=== PATIENT | female | born 1945 | race Caucasian/White ===

== ENCOUNTER 2017-04-13 14:02 | Inpatient (IN) | payer OTHER, MEDICAID ==
[2017-04-13 18:02] LABS: WHITE BLOOD COUNT 16.2 10^3/ul (4.8-10.8)
[2017-04-13 18:02] LABS: ADD MAN DIFF? NO; BASOPHILS % 0.2 % (0.0-2.0); EOSINOPHILS % 0.1 % (0.0-7.0); HEMATOCRIT 36.3 % (37.0-47.0); HEMOGLOBIN 11.8 g/dl (12.0-16.0); LYMPHOCYTES # 1.1 10^3/ul (0.8-2.9); LYMPHOCYTES % 6.8 % (15.0-51.0); MEAN CORPUSCULAR HGB CONC 32.5 g/dl (32.0-37.0); MEAN CORPUSCULAR VOLUME 89.2 fl (82.0-101.0); MEAN PLATELET VOLUME 10.6 fl (7.4-10.4); MONOCYTE # 0.7 10^3/ul (0.3-0.9); MONOCYTES % 4.2 % (0.0-11.0); NEUTROPHIL # 14.2 10^3/ul (1.6-7.5); NEUTROPHILS % 87.4 % (39.0-77.0); PLATELET COUNT 167 10^3/UL (140-415); RED BLOOD COUNT 4.07 10^6/ul (4.20-5.40); RED CELL DISTRIBUTION WIDTH 14.3 % (11.5-14.5)
[2017-04-13 18:27] LABS: ALANINE AMINOTRANSFERASE 24 IU/L (13-69); ALBUMIN/GLOBULIN RATIO 1.14; ALKALINE PHOSPHATASE 95 IU/L (42-121); ANION GAP 17 (8-16); ASPARTATE AMINO TRANSFERASE 18 IU/L (15-46); BILIRUBIN,INDIRECT 0.7 mg/dl (0-1.1); BILIRUBIN,TOTAL 0.7 mg/dl (0.2-1.3); BLOOD UREA NITROGEN 20 mg/dl (7-20); CALCIUM 8.3 mg/dl (8.4-10.2); CARBON DIOXIDE 23 mmol/L (21-31); CHLORIDE 101 mmol/L (97-110); CREATININE 0.73 mg/dl (0.44-1.00); GLUCOSE 119 mg/dl (70-220); POTASSIUM 3.7 mmol/L (3.5-5.1); SODIUM 137 mmol/L (135-144); TOTAL PROTEIN 7.5 g/dl (6.1-8.1)
[2017-04-13 18:37] LABS: TROPONIN-I < 0.012 ng/ml (0.00-0.12)
[2017-04-13 18:43] LABS: URINE BLOOD (Dip) POC 2+ (NEGATIVE); URINE GLUCOSE (Dip) POC Negative (NEGATIVE); URINE KETONES (Dip) POC 1+ (NEGATIVE); URINE LEUKOCYTE EST (Dip) POC Trace (NEGATIVE); URINE NITRITE (Dip) POC Negative (NEGATIVE); URINE TOTAL PROTEIN POC Trace (NEGATIVE)
[2017-04-13 18:43] LABS: URINE PH (Dip) POC 5.5 (5.0-8.5)
[2017-04-13 18:48] LABS: INR 1.14; PROTIME 14.8 Sec (11.9-14.9); PT RATIO 1.2
[2017-04-13 18:49] LABS: PARTIAL THROMBOPLASTIN TIME 30.3 Sec (25.0-35.0)
[2017-04-13 18:50] LABS: LACTIC ACID 1.2 mmol/L (0.5-2.0)
[2017-04-13] MEDS ORDERED: ONDANSETRON 4 MG INJ IV ×2 (19:30→20:30)
[2017-04-13] MEDS ORDERED: morphine 2 MG INJ IV ×2 (19:30→20:30)
[2017-04-13] MEDS: LEVOFLOXACIN 750MG/D5W (PMX) 150 ML IVPB (19:46)
[2017-04-13] MEDS: ACETAMINOPHEN 325 MG TAB PO (19:48)
[2017-04-13] MEDS ORDERED: NA PHOSPHATE/BIPHOS 133 ML ENEMA PR (20:30)
[2017-04-13] MEDS ORDERED: IBUPROFEN 400 MG TAB PO (20:30)
[2017-04-13] MEDS ORDERED: LORAZEPAM 2 MG INJ IV (20:30)
[2017-04-13] MEDS ORDERED: NACL 0.9% 3 ML SYG IV (20:30)
[2017-04-13] MEDS: ERGOCALCIFEROL 50,000 UNIT CAP PO (20:30)
[2017-04-13] MEDS ORDERED: VANCOMYCIN IV PER PHARMACY XX (20:30)
[2017-04-13] MEDS ORDERED: MAGNESIUM HYDROXIDE 30ML CUP PO (20:30)
[2017-04-13] MEDS ORDERED: NITROGLYCERIN (SL) 0.4 MG TAB SL (20:30)
[2017-04-13] MEDS ORDERED: DOCUSATE SODIUM 100 MG CAP PO (20:30)
[2017-04-13] MEDS ORDERED: LORAZEPAM 0.5 MG TAB PO (20:30)
[2017-04-13] MEDS ORDERED: ALBUTEROL/IPRATROPIUM (NEB) 3 ML AMP HHN (20:30)
[2017-04-13] MEDS: VANCOMYCIN 1 GM (PMX) 250 ML IVPB (21:18)
[2017-04-13] MEDS: HEPARIN 5,000 UNIT/0.5 ML VIAL SC (21:28)
[2017-04-13] MEDS: SOD CHLORIDE 0.45% 1,000 ML IV (21:29)
[2017-04-13 22:20] LABS: FREE T4 (FREE THYROXINE) 1.39 ng/dl (0.78-2.44)
[2017-04-13 22:31] LABS: LACTIC ACID 2.3 mmol/L (0.5-2.0)
[2017-04-13] MEDS: VANCOMYCIN 500MG/NS (PMX) 100 ML IVPB (23:22)
[2017-04-14 00:34] LABS: LACTIC ACID 1.8 mmol/L (0.5-2.0)
[2017-04-14] MEDS: ACETAMINOPHEN 325 MG TAB PO (05:14)
[2017-04-14] MEDS: PIPER-TAZO 3.375 GM IV (PMX) 100 ML IVPB ×4 (05:15→18:38)
[2017-04-14] MEDS: PANTOPRAZOLE (EC) 40 MG TAB PO (06:12)
[2017-04-14 06:45] LABS: ADD MAN DIFF? NO
[2017-04-14 06:51] LABS: BASOPHILS % 0.2 % (0.0-2.0); HEMOGLOBIN 11.1 g/dl (12.0-16.0); LYMPHOCYTES # 1.2 10^3/ul (0.8-2.9); LYMPHOCYTES % 7.4 % (15.0-51.0); MEAN CORPUSCULAR HEMOGLOBIN 28.8 pg (29.0-33.0); MEAN CORPUSCULAR HGB CONC 31.7 g/dl (32.0-37.0); MEAN CORPUSCULAR VOLUME 90.9 fl (82.0-101.0); MEAN PLATELET VOLUME 10.5 fl (7.4-10.4); MONOCYTE # 0.6 10^3/ul (0.3-0.9); MONOCYTES % 3.7 % (0.0-11.0); NEUTROPHILS % 87.3 % (39.0-77.0); PLATELET COUNT 171 10^3/UL (140-415); RED BLOOD COUNT 3.85 10^6/ul (4.20-5.40); RED CELL DISTRIBUTION WIDTH 14.1 % (11.5-14.5)
[2017-04-14 07:26] LABS: ANION GAP 12 (8-16); BLOOD UREA NITROGEN 16 mg/dl (7-20); CALCIUM 8.4 mg/dl (8.4-10.2); CARBON DIOXIDE 25 mmol/L (21-31); CHLORIDE 103 mmol/L (97-110); CREATININE 0.74 mg/dl (0.44-1.00); GLUCOSE 123 mg/dl (70-220); MAGNESIUM 1.8 mg/dl (1.7-2.5); PHOSPHORUS 2.3 mg/dl (2.5-4.9); POTASSIUM 3.3 mmol/L (3.5-5.1); SODIUM 137 mmol/L (135-144)
[2017-04-14 07:27] LABS: CHOL/HDL RATIO 4.4 RATIO; HDL CHOLESTEROL 32 mg/dl (33-92); LDL CHOLESTEROL,CALCULATED 92 mg/dl; TRIGLYCERIDES 94 mg/dl (0-149)
[2017-04-14 07:27] LABS: CHOLESTEROL 143 mg/dl (100-200)
[2017-04-14 07:48] LABS: THYROID STIMULATING HORMONE 0.233 MIU/L (0.465-4.680)
[2017-04-14 09:50] LABS: HEMOGLOBIN A1C 5.5 % (0-5.9)
[2017-04-14] MEDS: ASPIRIN (EC) 81 MG TAB PO (11:26)
[2017-04-14] MEDS: SOD CHLORIDE 0.45% 1,000 ML IV ×2 (11:26→22:42)
[2017-04-14] MEDS: ATENOLOL 50 MG TAB PO (11:28)
[2017-04-14] MEDS: HEPARIN 5,000 UNIT/0.5 ML VIAL SC ×2 (11:30→20:51)
[2017-04-14] MEDS: VANCOMYCIN 1.25 GM in SODIUM CHLORIDE 0.45 % 250 ML IVPB (19:49)
[2017-04-14] MEDS ORDERED: VANCOMYCIN 1 GM 250 ML IVPB (21:00)
[2017-04-15] MEDS: PIPER-TAZO 3.375 GM IV (PMX) 100 ML IVPB ×3 (00:44→11:54)
[2017-04-15 06:09] LABS: ADD MAN DIFF? NO
[2017-04-15 06:12] LABS: BASOPHILS % 0.3 % (0.0-2.0); EOSINOPHILS # 0.1 10^3/ul (0.0-0.5); EOSINOPHILS % 0.7 % (0.0-7.0); HEMATOCRIT 33.8 % (37.0-47.0); HEMOGLOBIN 10.8 g/dl (12.0-16.0); LYMPHOCYTES # 1.7 10^3/ul (0.8-2.9); LYMPHOCYTES % 15.7 % (15.0-51.0); MEAN CORPUSCULAR HEMOGLOBIN 29.1 pg (29.0-33.0); MEAN CORPUSCULAR VOLUME 91.1 fl (82.0-101.0); MEAN PLATELET VOLUME 10.6 fl (7.4-10.4); MONOCYTE # 0.6 10^3/ul (0.3-0.9); MONOCYTES % 5.6 % (0.0-11.0); NEUTROPHIL # 8.2 10^3/ul (1.6-7.5); NEUTROPHILS % 76.9 % (39.0-77.0); PLATELET COUNT 169 10^3/UL (140-415); RED BLOOD COUNT 3.71 10^6/ul (4.20-5.40); RED CELL DISTRIBUTION WIDTH 14.4 % (11.5-14.5)
[2017-04-15 06:12] LABS: WHITE BLOOD COUNT 10.7 10^3/ul (4.8-10.8)
[2017-04-15] MEDS: PANTOPRAZOLE (EC) 40 MG TAB PO (06:33)
[2017-04-15 06:52] LABS: ANION GAP 13 (8-16); BLOOD UREA NITROGEN 13 mg/dl (7-20); CARBON DIOXIDE 25 mmol/L (21-31); CHLORIDE 108 mmol/L (97-110); CREATININE 0.77 mg/dl (0.44-1.00); GLUCOSE 91 mg/dl (70-220); POTASSIUM 3.7 mmol/L (3.5-5.1); SODIUM 142 mmol/L (135-144)
[2017-04-15] MEDS: ATENOLOL 50 MG TAB PO (09:10)
[2017-04-15] MEDS: ASPIRIN (EC) 81 MG TAB PO (09:11)
[2017-04-15] MEDS: HEPARIN 5,000 UNIT/0.5 ML VIAL SC ×2 (09:15→19:48)
[2017-04-15] MEDS: SOD CHLORIDE 0.45% 1,000 ML IV (12:39)
[2017-04-15] MEDS: LEVOFLOXACIN 500 MG TAB PO (15:01)
[2017-04-15] MEDS: VANCOMYCIN 1.25 GM in SODIUM CHLORIDE 0.45 % 250 ML IVPB (19:45)
[2017-04-15] MEDS: ACYCLOVIR 400 MG TAB PO (19:45)
[2017-04-15] MEDS ORDERED: VANCOMYCIN 1.25 GM in SODIUM CHLORIDE 0.45 % 250 ML IVPB (21:00)
[2017-04-16] MEDS: SOD CHLORIDE 0.45% 1,000 ML IV ×2 (01:35→14:55)
[2017-04-16 05:31] LABS: ADD MAN DIFF? NO
[2017-04-16 06:01] LABS: ANION GAP 11 (8-16); BLOOD UREA NITROGEN 14 mg/dl (7-20); CALCIUM 8.6 mg/dl (8.4-10.2); CARBON DIOXIDE 26 mmol/L (21-31); CHLORIDE 110 mmol/L (97-110); CREATININE 0.86 mg/dl (0.44-1.00); GLUCOSE 98 mg/dl (70-220); POTASSIUM 3.9 mmol/L (3.5-5.1); SODIUM 143 mmol/L (135-144)
[2017-04-16 07:28] LABS: BASOPHIL # 0.1 10^3/ul (0.0-0.1); BASOPHILS % 0.7 % (0.0-2.0); EOSINOPHILS # 0.2 10^3/ul (0.0-0.5); EOSINOPHILS % 1.7 % (0.0-7.0); HEMATOCRIT 36.2 % (37.0-47.0); LYMPHOCYTES # 1.8 10^3/ul (0.8-2.9); MEAN CORPUSCULAR HEMOGLOBIN 28.9 pg (29.0-33.0); MEAN CORPUSCULAR HGB CONC 30.4 g/dl (32.0-37.0); MEAN PLATELET VOLUME 10.4 fl (7.4-10.4); MONOCYTE # 0.6 10^3/ul (0.3-0.9); MONOCYTES % 6.9 % (0.0-11.0); NEUTROPHIL # 6.3 10^3/ul (1.6-7.5); NEUTROPHILS % 69.2 % (39.0-77.0); PLATELET COUNT 183 10^3/UL (140-415); RED BLOOD COUNT 3.81 10^6/ul (4.20-5.40)
[2017-04-16 07:28] LABS: WHITE BLOOD COUNT 9.1 10^3/ul (4.8-10.8)
[2017-04-16] MEDS: PANTOPRAZOLE (EC) 40 MG TAB PO (07:33)
[2017-04-16] MEDS: LEVOFLOXACIN 500 MG TAB PO (07:33)
[2017-04-16] MEDS: ATENOLOL 50 MG TAB PO (09:00)
[2017-04-16] MEDS: ASPIRIN (EC) 81 MG TAB PO (09:07)
[2017-04-16] MEDS: ACYCLOVIR 400 MG TAB PO ×3 (09:07→21:37)
[2017-04-16] MEDS: HEPARIN 5,000 UNIT/0.5 ML VIAL SC ×2 (09:13→20:25)
[2017-04-16] MEDS: INFLUENZA VIRUS VACCINE 0.5 ML SYG IM* (12:00)
[2017-04-16] MEDS ORDERED: LIDOCAINE 1% (MPF) 5 ML VIAL SC (17:30)
[2017-04-16 19:24] LABS: VANCOMYCIN,TROUGH 7.9 ug/ml (10.0-20.0)
[2017-04-16] MEDS: VANCOMYCIN 1.25 GM in SODIUM CHLORIDE 0.45 % 250 ML IVPB (19:39)
[2017-04-17] MEDS: SOD CHLORIDE 0.45% 1,000 ML IV ×2 (04:25→16:53)
[2017-04-17] MEDS: LEVOFLOXACIN 500 MG TAB PO (05:57)
[2017-04-17 06:23] LABS: ADD MAN DIFF? NO
[2017-04-17 06:35] LABS: BASOPHILS % 0.6 % (0.0-2.0); EOSINOPHILS # 0.2 10^3/ul (0.0-0.5); EOSINOPHILS % 2.3 % (0.0-7.0); HEMOGLOBIN 10.7 g/dl (12.0-16.0); LYMPHOCYTES # 1.6 10^3/ul (0.8-2.9); LYMPHOCYTES % 24.5 % (15.0-51.0); MEAN CORPUSCULAR HEMOGLOBIN 29.3 pg (29.0-33.0); MEAN CORPUSCULAR HGB CONC 31.5 g/dl (32.0-37.0); MEAN CORPUSCULAR VOLUME 93.2 fl (82.0-101.0); MEAN PLATELET VOLUME 10.3 fl (7.4-10.4); MONOCYTE # 0.4 10^3/ul (0.3-0.9); MONOCYTES % 6.2 % (0.0-11.0); NEUTROPHIL # 4.3 10^3/ul (1.6-7.5); NEUTROPHILS % 63.8 % (39.0-77.0); PLATELET COUNT 196 10^3/UL (140-415); RED BLOOD COUNT 3.65 10^6/ul (4.20-5.40); RED CELL DISTRIBUTION WIDTH 14.1 % (11.5-14.5)
[2017-04-17 06:35] LABS: WHITE BLOOD COUNT 6.7 10^3/ul (4.8-10.8)
[2017-04-17 07:12] LABS: ANION GAP 13 (8-16); BLOOD UREA NITROGEN 11 mg/dl (7-20); CALCIUM 8.3 mg/dl (8.4-10.2); CARBON DIOXIDE 23 mmol/L (21-31); CHLORIDE 111 mmol/L (97-110); CREATININE 0.98 mg/dl (0.44-1.00); GLUCOSE 95 mg/dl (70-220); POTASSIUM 3.4 mmol/L (3.5-5.1); SODIUM 144 mmol/L (135-144)
[2017-04-17] MEDS: ACYCLOVIR 400 MG TAB PO ×3 (08:51→20:53)
[2017-04-17] MEDS: ASPIRIN (EC) 81 MG TAB PO (08:51)
[2017-04-17] MEDS: PANTOPRAZOLE (EC) 40 MG TAB PO (08:51)
[2017-04-17] MEDS: ATENOLOL 50 MG TAB PO (08:52)
[2017-04-17] MEDS: HEPARIN 5,000 UNIT/0.5 ML VIAL SC ×2 (08:55→20:56)
[2017-04-17] MEDS: POTASSIUM CHLORIDE (SR) 20 MEQ TAB PO (11:43)
[2017-04-17] MEDS: HEPARIN (10 UNITS/ML) 5ML SYG IV (17:01)
[2017-04-17] MEDS: VANCOMYCIN IVPB (18:01)
[2017-04-17] MEDS: SODIUM CHLORIDE 0.45% IVPB (18:01)
[2017-04-18] MEDS: HYDROCODONE/APAP (5/325) TAB PO (01:51)
[2017-04-18] MEDS: LEVOFLOXACIN 500 MG TAB PO (05:16)
[2017-04-18 06:17] LABS: ADD MAN DIFF? NO
[2017-04-18 06:32] LABS: WHITE BLOOD COUNT 8.4 10^3/ul (4.8-10.8)
[2017-04-18 06:32] LABS: BASOPHILS % 0.5 % (0.0-2.0); EOSINOPHILS # 0.1 10^3/ul (0.0-0.5); EOSINOPHILS % 1.5 % (0.0-7.0); HEMATOCRIT 33.6 % (37.0-47.0); HEMOGLOBIN 10.5 g/dl (12.0-16.0); LYMPHOCYTES # 1.8 10^3/ul (0.8-2.9); LYMPHOCYTES % 21.6 % (15.0-51.0); MEAN CORPUSCULAR HEMOGLOBIN 29.1 pg (29.0-33.0); MEAN CORPUSCULAR HGB CONC 31.3 g/dl (32.0-37.0); MEAN CORPUSCULAR VOLUME 93.1 fl (82.0-101.0); MEAN PLATELET VOLUME 9.9 fl (7.4-10.4); MONOCYTE # 0.5 10^3/ul (0.3-0.9); MONOCYTES % 6.3 % (0.0-11.0); NEUTROPHIL # 5.7 10^3/ul (1.6-7.5); NEUTROPHILS % 67.2 % (39.0-77.0); PLATELET COUNT 209 10^3/UL (140-415); RED BLOOD COUNT 3.61 10^6/ul (4.20-5.40); RED CELL DISTRIBUTION WIDTH 13.9 % (11.5-14.5)
[2017-04-18] MEDS: SOD CHLORIDE 0.45% 1,000 ML IV ×2 (06:55→11:07)
[2017-04-18] MEDS: ASPIRIN (EC) 81 MG TAB PO (09:00)
[2017-04-18] MEDS: ATENOLOL 50 MG TAB PO (09:00)
[2017-04-18] MEDS: ACYCLOVIR 400 MG TAB PO ×3 (09:00→20:32)
[2017-04-18] MEDS: PANTOPRAZOLE (EC) 40 MG TAB PO (09:00)
[2017-04-18] MEDS: HEPARIN 5,000 UNIT/0.5 ML VIAL SC ×2 (09:06→20:33)
[2017-04-18 09:37] LABS: ANION GAP 13 (8-16); BLOOD UREA NITROGEN 10 mg/dl (7-20); CALCIUM 8.5 mg/dl (8.4-10.2); CARBON DIOXIDE 23 mmol/L (21-31); CHLORIDE 111 mmol/L (97-110); CREATININE 0.98 mg/dl (0.44-1.00); GLUCOSE 118 mg/dl (70-220); POTASSIUM 3.7 mmol/L (3.5-5.1); SODIUM 143 mmol/L (135-144)
[2017-04-18] MEDS: VANCOMYCIN IVPB (17:48)
[2017-04-18] MEDS: SODIUM CHLORIDE 0.45% IVPB (17:48)
[2017-04-18] MEDS: L ACIDOPHIL/B LACTIS/B LONGUM CAPSULE PO (20:32)
[2017-04-19] MEDS: SOD CHLORIDE 0.45% 1,000 ML IV ×2 (03:10→08:41)
[2017-04-19] MEDS: LEVOFLOXACIN 500 MG TAB PO (06:00)
[2017-04-19 06:19] LABS: ADD MAN DIFF? NO
[2017-04-19 06:44] LABS: WHITE BLOOD COUNT 10.6 10^3/ul (4.8-10.8)
[2017-04-19 06:44] LABS: BASOPHILS % 0.3 % (0.0-2.0); EOSINOPHILS # 0.1 10^3/ul (0.0-0.5); EOSINOPHILS % 0.9 % (0.0-7.0); HEMATOCRIT 31.5 % (37.0-47.0); HEMOGLOBIN 10.2 g/dl (12.0-16.0); LYMPHOCYTES # 1.6 10^3/ul (0.8-2.9); LYMPHOCYTES % 14.7 % (15.0-51.0); MEAN CORPUSCULAR HEMOGLOBIN 29.6 pg (29.0-33.0); MEAN CORPUSCULAR HGB CONC 32.4 g/dl (32.0-37.0); MEAN CORPUSCULAR VOLUME 91.3 fl (82.0-101.0); MEAN PLATELET VOLUME 10.2 fl (7.4-10.4); MONOCYTE # 0.8 10^3/ul (0.3-0.9); MONOCYTES % 7.4 % (0.0-11.0); NEUTROPHILS % 74.9 % (39.0-77.0); PLATELET COUNT 199 10^3/UL (140-415); RED BLOOD COUNT 3.45 10^6/ul (4.20-5.40); RED CELL DISTRIBUTION WIDTH 14.4 % (11.5-14.5)
[2017-04-19 07:01] LABS: ANION GAP 13 (8-16); BLOOD UREA NITROGEN 9 mg/dl (7-20); CALCIUM 8.2 mg/dl (8.4-10.2); CARBON DIOXIDE 24 mmol/L (21-31); CHLORIDE 107 mmol/L (97-110); CREATININE 0.96 mg/dl (0.44-1.00); GLUCOSE 120 mg/dl (70-220); POTASSIUM 3.4 mmol/L (3.5-5.1); SODIUM 141 mmol/L (135-144)
[2017-04-19] MEDS: PANTOPRAZOLE (EC) 40 MG TAB PO (08:34)
[2017-04-19] MEDS: ATENOLOL 50 MG TAB PO (08:34)
[2017-04-19] MEDS: ACYCLOVIR 400 MG TAB PO ×3 (08:35→20:56)
[2017-04-19] MEDS: ASPIRIN (EC) 81 MG TAB PO (08:35)
[2017-04-19] MEDS: HEPARIN 5,000 UNIT/0.5 ML VIAL SC ×2 (08:39→20:56)
[2017-04-19] MEDS: L ACIDOPHIL/B LACTIS/B LONGUM CAPSULE PO ×2 (08:41→20:56)
[2017-04-19] MEDS: POTASSIUM CHLORIDE (SR) 20 MEQ TAB PO (13:28)
[2017-04-19] MEDS: VANCOMYCIN IVPB (17:29)
[2017-04-19] MEDS: SODIUM CHLORIDE 0.45% IVPB (17:29)
== END 2017-04-19 22:40 | disposition home health service (06) | DRG 871 ==
LOC: MS3 19:13 → MS2 04-16 19:55 → E/R 14:02
PROC: 02HV33Z Insertion of Infusion Device into Superior Vena Cava, Percutaneous Approach (ICD-10-PCS; principal; 2017-04-17)
DX: A41.9 Sepsis, unspecified organism (principal); J18.9 Pneumonia, unspecified organism; L03.311 Cellulitis of abdominal wall; L03.317 Cellulitis of buttock; I10 Essential (primary) hypertension; F41.9 Anxiety disorder, unspecified; E78.5 Hyperlipidemia, unspecified; B00.1 Herpesviral vesicular dermatitis
CPT/HCPCS: 36415; 36569; 71045; 76937; 80048; 80053; 80061; 80202; 81003; 83036; 83605; 83735; 84100; 84439; 84443; 84484; 85025; 85610; 85730; 87040; 87081; 87400; 90686; 93005; 96372; 96374; 96375; 96376; 97162; 99285-25